=== PATIENT | male | born 1960 | race Caucasian/White ===

== ENCOUNTER 2018-02-08 10:21 | Emergency (ER) | payer MEDICARE, MEDICAID ==
[~2018-02-08] VITALS: Ht 180.3 cm; Wt 104.0 kg
[2018-02-08 10:30] VITALS: BP 139/99
[2018-02-08] MEDS ORDERED: CLIN300C85 PO (11:15)
[2018-02-08] MEDS ORDERED: ACET1TAB12 PO (11:15)
[2018-02-08] MEDS ORDERED: HYDROcodone/acetaminophen 10/325mg tab PO ONE (11:15)
== END 2018-02-08 11:23 | disposition home or self-care (01) ==
LOC: ER 10:22
DX: K08.89 Other specified disorders of teeth and supporting structures (principal); F17.200 Nicotine dependence, unspecified, uncomplicated
CPT/HCPCS: 99283

== ENCOUNTER 2018-02-14 07:06 | Emergency (ER) | payer MEDICARE, MEDICAID ==
[~2018-02-14] VITALS: Ht 180.3 cm; Wt 106.0 kg
[~2018-02-14 07:06] MED LIST: ACET1TAB12 PO; CLIN300C85 PO
[2018-02-14 07:08] VITALS: BP 172/101
[2018-02-14] MEDS ORDERED: CEPH500C5 PO (07:45)
[2018-02-14] MEDS ORDERED: HYDR-3965 PO (07:45)
[2018-02-14] MEDS ORDERED: HYDROcodone/acetaminophen 5mg/325mg tablet PO ONE (07:55)
== END 2018-02-14 08:00 | disposition home or self-care (01) ==
LOC: ER 07:06
DX: K08.89 Other specified disorders of teeth and supporting structures (principal); Z59.0 Homelessness
CPT/HCPCS: 99283